=== PATIENT | male | born 1990 | race Caucasian/White ===

== ENCOUNTER → 2023-08-08 13:49 | Outpatient (REF) | payer BC, SELFPAY | LOC: HWRAD 13:49 | PROVIDERS: ATTENDING PHYSICIAN Urology; FAMILY PHYSICIAN Family Medicine | DX: N50.89 Other specified disorders of the male genital organs (principal) | CPT/HCPCS: 76870; 93976 ==

== ENCOUNTER → 2023-10-20 16:22 | Outpatient (REF) | payer BC, SELFPAY | LOC: CLAB 16:22 | PROVIDERS: ATTENDING PHYSICIAN Urology | DX: Z30.2 Encounter for sterilization (principal) | CPT/HCPCS: 88302 ==

== ENCOUNTER 2024-06-08 18:30 | Inpatient (IN) | payer BC, SELFPAY ==
[2024-06-08] VITALS (8 sets, daily range): BP systolic 107–122; BP diastolic 59–78; BMI 22.7
[2024-06-08 14:34] LABS: % Basophils 0.3 % (0-2); % Eosinophils 0.6 % (0-6); % Immature Granulocytes 0.3 % (0-0.5); % Lymphocytes 13.4 % (20.5-51.1); % Monocytes 6.1 % (1.7-9.3); % Neutrophils 79.3 % (42.2-75.2); Absolute Eosinophils 0.1 10^3/uL (0-0.7); Absolute Monocytes 0.5 10^3/uL (0.1-0.6); Absolute Neutrophils 6.1 10^3/uL (1.4-6.5); Hematocrit 42.3 % (39.0-52.0); Hemoglobin 15.1 g/dL (13.0-18.0); Mean Corp Hgb Conc. 35.7 g/dL (33.0-37.0); Mean Corpuscular Hgb 31.3 pg (27.0-31.0); Mean Corpuscular Volume 87.6 fL (80.0-94.0); Mean Platelet Volume 9.1 fL (7.4-10.4); Nucleated Red Blood Cells % 0 % (-); Platelet Count 223 10^3/uL (130-400); Red Blood Cell Count 4.83 10^6/uL (4.70-6.10); Red Cell Dist. Width 12.3 % (11.5-14.5); White Blood Cell Count 7.7 10^3/uL (4.8-10.8)
--- NOTE | 2024-06-08 14:52 | ED.GENMED ---
History of Present Illness
General
Chief Complaint: Abdominal Pain
Source: patient and spouse
Exam Limitations: none
Time Seen by Provider: 06/08/24 14:08
Nursing documentation reviewed up to this point in time: agreed with
History of Present Illness
History of Present Illness:
34-year-old male with past medical history of bowel obstruction requiring partial resection presents to the ER with his for evaluation of upper abdominal/chest discomfort rating to the back and severe hiccups. Patient says symptoms started
yesterday night and have been constant since then. He reports 'painful' repeated bouts of hiccups. He says he has burning chest/upper abdominal discomfort that radiates through to his mid back. He has had some nausea no vomiting. No diarrhea or
constipation. He denies fever or chills, shortness of breath or cough. He says he has had heartburn in the past but never anything this severe.
Past History
Past History
ED Past Medical History: Other (SBO)
ED Past Surgical History: Other (Laparotomy)
Social History
Personal:
Review of Systems
Review of Systems
All Other Systems: ROS reviewed and negative except as documented in HPI and ROS
Constitutional: Denies fever or chills
Respiratory: Denies cough or trouble breathing
Cardiac: Reports chest pain; Denies palpitations
ABD/GI: Reports abdominal pain and nausea; Denies vomiting, diarrhea or constipated
: Denies flank pain
Musculoskeletal: Denies neck pain or back pain
Neurological: Denies dizzy or headache
Phy Exam
Physical Exam
Physical Exam:
General: Awake, alert; appears uncomfortable frequent hiccups
Head: Normocephalic, atraumatic
Eyes: Conjunctiva normal, sclera anicteric
Throat: Airway intact, handling secretions
Neck: Trachea midline, supple without meningismus
Lungs: Clear to auscultation bilaterally, no wheezing, rales, rhonchi
Heart: Regular rate and rhythm, no murmurs, gallops, or rubs
Abd: Soft, non distended, mild tenderness in the epigastrium
Back: No CVA tenderness or reproducible tenderness in the back
Neuro: No gross deficits
Extremities: No edema in extremities, equal pulses in all extremities
Scores
Heart Failure Risk
Heart Failure Risk Score: Not Applicable
Heart Score for Chest Pain Patients
STEMI patient?: Not applicable
Withdrawal Assessment of Alcohol
Withdrawal Assessment Completed?: Not applicable
Course
Orders/Labs/Results
Orders:
Orders
06/08/24 13:47
Electrocardiogram (*1) Urgent
Reason for Study: Abdominal Pain
EKG- Treatment ONCE
06/08/24 14:13
Complete Blood Count/With Diff Urgent
Comprehensive Metabolic Panel Urgent
Lipase Urgent
Troponin I Urgent
06/08/24 14:44
US Abdomen Complete/Upper Urgent
Comment:
Reason For Exam: abd pain rad to back, nausea
06/08/24 14:45
Chlorpromazine [Thorazine] 25 mg PO NOW STA
Morphine Sulfate 4 mg IV NOW STA
06/08/24 14:46
CR Chest - 2 Views Urgent
Comment:
Reason For Exam: chest pain
06/08/24 14:54
Chlorpromazine [Thorazine] 25 mg PO NOW STA
06/08/24 16:16
CT Abd/pelvis W Iv Cont Urgent
Comment:
Reason For Exam: abd pain, nausea, back pain
06/08/24 17:48
Morphine Sulfate 4 mg IV NOW STA
Pantoprazole [Protonix IV] 40 mg IV NOW STA
Abnormal Lab Results
06/08/24
14:13
MCH 31.3 H pg
(27.0-31.0)
Absolute Lymphs (auto) 1.0 L 10^3/uL
(1.2-3.4)
Neutrophils % 79.3 H %
(42.2-75.2)
Lymphocytes % 13.4 L %
(20.5-51.1)
BUN 24 H mg/dl
(9-20)
06/08/24 14:13
06/08/24 14:13
Vital Signs
Initial and Last Documented VS:
Initial Vital Signs
Temp Pulse Resp Pulse Ox
36.8 C 71 20 100
06/08/24 13:51 06/08/24 13:51 06/08/24 13:51 06/08/24 13:51
Last Documented Vital Signs
Temp Pulse Resp BP Pulse Ox
36.8 C 73 19 112/71 98
06/08/24 13:51 06/08/24 16:00 06/08/24 16:00 06/08/24 16:00 06/08/24 16:00
MDM/Problems Addressed
Differential Diagnosis Includes:
Cholelithiasis/cholecystitis, pancreatitis, bowel obstruction, GERD/esophagitis
MDM/Problems Addressed:
34-year-old male presents with lower chest/epigastric pain rating to the back associated with severe hiccups and nausea. Constant since last night. Vitals and exam as above. Will plan to place an IV send labs including a CBC and a CMP, lipase.
Check EKG and troponin. Can check chest x-ray and upper abdominal ultrasound to start. Will treat symptomatically�with severe hiccups and nausea reasonable to trial Thorazine to help with both these issues. Will treat pain. Reassess after the
above.
Labs reviewed: CBC and CMP unremarkable. Troponin undetectable. Lipase normal. Chest x-ray shows no acute cardiopulmonary disease but does show distended stomach on my review. Abdominal ultrasound shows fatty infiltration of liver no other acute
pathology. Clinical reassessment patient is feeling a bit better after treatment hiccups have improved stopping some mild pain. Has long history of multiple small bowel obstructions will check CT given persistent pain with no other clear cause for
symptoms and distended stomach on chest x-ray.
CT shows fluid distention in the distal thoracic esophagus with wall thickening suggesting esophagitis. He also has moderate gastric distention but no clear evidence for bowel obstruction. Onset is likely inflammatory bronchiolitis in the left
lower lobe. Clinical reassessment he is still having significant back/epigastric pain. He is not vomiting. I long discussion with the patient�unclear etiology to gastric distention; he has no clear bowel obstruction but he does have history in
the past could be developing obstruction. I suggested that we perhaps place nasogastric tube to decompress his stomach which I suspect would provide significant symptomatic relief but patient wishes to hold off for now in favor of watchful waiting
and symptom control�I do not think this is unreasonable but I explained that we would proceed with nasogastric tube if he begins vomiting or feels like pain is not well-managed with medication. Will admit for serial exams and continued symptom
control. Case discussed with hospitalist.
*Radiology
Radiology exam reviewed: radiology read reviewed
*Pulse Oximetry
Patient hypoxic: no
*EKG
Interpreted by ED Provider?: Yes
Heart Rate: 70
Rate: normal
Rhythm: sinus
[place]: normal axis
Interval: normal interval
QRS Pattern: normal QRS
Ischemia: no ischemia
*Critical Care Note
Total Time (30-74mins, 75-104mins- exclusive of procedures): Not Applicable
Data Reviewed
Review of Other/Old Records Reveals: Labs and Records
Source: patient and spouse
Patient Management
Discussion with other providers: Hospitalist (Discussed with hospitalist)
Escalation/DeEscalation of care consider admission/obs:
Admission indicated
ED Attending Note
-
Portions of this chart may have been created with voice recognition software.� Occasional wrong word or��sound alike� substitutions may have occurred due to the inherent limitations of voice recognition software.
Discharge Plan
Departure
Patient Disposition: Admit
Date of Disposition: 06/08/24
Time of Disposition: 17:53
Admit to doctor: Karla
Presentation/result/management discussed w/ accepting MD/DO: Hospitalist
Discharge Problem:
Acute distention of stomach, Esophagitis, Singultus
Prescriptions:
No Action
levofloxacin 750 mg tablet
750 mg PO DAILY 4 Days Qty: 4 0RF
Referrals:
Mamadou Edmondson MD [Family Provider] -
Interventions
Interventions:
*Risk Screen - Suicide Last Done: 06/08/24 13:54
*General Assessment Last Done: 06/08/24 13:54
*Neglect/Abuse Screening Last Done: 06/08/24 14:30
*ED COVID-19 Vaccine History Last Done: 06/08/24 14:30
Discharge Date and Time
Print Language: QATARI
[2024-06-08 14:54] LABS: ALT (SGPT) 16 U/L (0-50); AST (SGOT) 19 U/L (17-59); Albumin 4.2 g/dl (3.5-5.0); Alkaline Phosphatase 57 U/L (38-126); Blood Urea Nitrogen 24 mg/dl (9-20); Calcium 9.7 mg/dl (8.4-10.2); Carbon Dioxide 27 mmol/L (22-30); Chloride 106 mmol/L (98-107); Glucose 99 mg/dl (70-99); Lipase 119 U/L (23-300); Potassium 4.3 mmol/L (3.5-5.1); Sodium 140 mmol/L (135-145); Total Bilirubin 0.5 mg/dl (0.2-1.3); Total Protein 6.3 g/dl (6.3-8.2); eGFR > 60.00
[2024-06-08] MEDS: MORPHINE SULFATE 4 MG IV ×3 (14:55→23:05)
[2024-06-08 15:00] LABS: Troponin I < 0.012 ng/ml
[2024-06-08] MEDS: THORAZINE 25 MG PO (15:45)
[2024-06-08] MEDS: PROTONIX IV 40 MG IV (17:57)
--- NOTE | 2024-06-08 18:06 | HPS.HSE ---
Family Physician
-
Family Physician: Mamadou Edmondson
Chief Complaint
-
Abdomen pain
History of Present Illness
34-year-old male with ADHD, heartburn, S/P vasectomy, H/O SBO s/p decompression (2022) who is presenting to the emergency department today with a complaint of abdomen pain. Was accompanied with his . Mentioned upper abdomen and chest
discomfort that radiated to his back and associated with severe hiccups. Started yesterday evening and has been constant since then. Mentions that hiccups have been painful and associated with a burning discomfort in his chest and up to her
abdomen with radiation to the mid back. Associated with nausea however no vomiting, diarrhea, constipation. Denies fevers or chills, dyspnea, chest tightness. Mentions previous episodes of heartburn but nothing this severe.
AFVSS upon arrival to the hospital. ED Labs unremarkable. ECG with normal sinus rhythm and no ischemic findings. Troponin negative. Abdomen ultrasound showed increased echogenicity of the liver compatible with underlying hepatocellular disease as
well as a tiny gallbladder polyp. Chest x-ray without any signs of acute processes. CT A/P with IV contrast showed signs of bronchiolitis in the left lower lobe, fluid distention of the distal thoracic esophagus with mild wall thickening, moderate
gastric distention, moderate diffuse colonic stool burden, however no evidence for mechanical obstruction. In the ED was given morphine sulfate and chlorpromazine.
When speaking with the patient in the room he states that symptoms started yesterday, however he did have a normal bowel movement this morning with regular caliber. He denies any recent NSAID usage. States that he did not have bowel resection
previously however had 'untwisting' of his bowel with previous episodes. Denies any melena, hematochezia.
Medical History
Past Medical History
Past Medical History: Reports GERD
Additional Past Medical History:
SBO x5
Past Surgical History: Reports Other
Additional Past Surgical History:
Exploratory laparotomy with decompression of small bowel ('untwisting')
Social History
Tobacco: Non-smoker
Alcohol: Occasional
Drug: None
Family History
Family History: Not pertinent
Allergies / Home Medications
Allergies reflects when Allergies were last updated in [employer].
Home Medications with original date entered in [employer]
Allergy/Medication List:
Allergies
Allergy/AdvReac Type Severity Reaction Status Date / Time
No Known Allergies Allergy Verified 06/08/24 13:51
Home Medications
levofloxacin 750 mg tablet 750 mg PO DAILY 4 days #4 tabs 12/23/22
Review of Systems
-
History Source: Patient
A 12 point ROS was completed and negative except as noted: Yes
Constitutional: Reports No Symptoms
EENT: Reports No Symptoms
Respiratory: Reports No Symptoms
Cardiac: Reports No Symptoms
Abdomen/GI: Reports See HPI
: Reports No Symptoms
Musculoskeletal: Reports No Symptoms
Skin: Reports No Symptoms
Neurological: Reports No Symptoms
Endocrine: Reports No Symptoms
Hematologic/Lymphatic: Reports No Symptoms
Psych: Reports No Symptoms
Physical Exam
Vital Signs
Vital Signs
Temp Pulse Resp BP Pulse Ox
98.2 F 73 19 112/71 98
06/08/24 13:51 06/08/24 16:00 06/08/24 16:00 06/08/24 16:00 06/08/24 16:00
Physical Exam
General: Well Developed, Well Nourished and No Apparent Distress
HEENT: NormoCephalic, Anicteric, Moist mucous membranes, Atraumatic and PERRLA
Respiratory: Clear and Non Labored Respirations; No Accessory Resp Muscle Use
Cardiac: S1/S2 and Regular Rhythm; No Murmur, Rub, Gallop or Peripheral Edema
GI: Soft, Non Tender, Normal Bowel Sounds, Distended (Mild distention) and No Hepatosplenomegaly
Musculoskeletal: No Clubbing, No Cyanosis and Other (No gross deformity)
Skin: Warm and Dry; No Rash or Jaundice
Neuro: AO x 3 and Nonfocal/grossly intact; No Tremors
Psych: Calm
Laboratory Results
-
06/08/24 14:13
06/08/24 14:13
Laboratory Results
Total Bilirubin 0.5 mg/dl (0.2-1.3) 06/08/24 14:13
AST 19 U/L (17-59) 06/08/24 14:13
ALT 16 U/L (0-50) 06/08/24 14:13
Alkaline Phosphatase 57 U/L (38-126) 06/08/24 14:13
Troponin I < 0.012 ng/ml 06/08/24 14:13
Lipase 119 U/L (23-300) 06/08/24 14:13
Data Reviewed
-
CT Scan: Report Reviewed by me, Discussed with Physician (General surgery) and Discussed with Patient
Lab Data: Labs Reviewed by me and Discussed with Patient
Impression/Plan
-
#Suspected early SBO
#Abdomen pain/distention
-Concern for early SBO or other intestinal obstruction, possibly secondary to adhesions (previous ex lap)
-Presented with abdominal distention/pain and nausea, has not had any vomiting episodes
-CT A/P with IV contrast did not show any transition points or signs of high-grade mechanical obstruction
-Radiographic pattern not consistent with ileus; deferred against NGT in the ED at patient's preference
-Hemodynamically stable, currently afebrile without infectious signs
Plan
-NPO for now with serial abdomen exams
-Start light maintenance IVF with D5
-NGT if patient develops vomiting
-PRN antiemtic and morphine
-Try to limit anticholinergics and opiates otherwise
-Surgical consult
#GERD with esophagitis
#Gastritis
-Question if this is related to obstruction with acute on chronic reflux
-Patient has chronic heartburn symptoms, not as severe as symptoms today
-ECG was normal and troponin negative, pain unlikely to be cardiovascular in nature
-CT A/P with IV contrast showed evidence of gastritis and esophagitis
-Home regimen does not include any antacid therapy per OP record
-Denies any symptoms of dysphagia though does have reflux
Plan
-Start IV PPI empirically
-Avoid NSAIDs
-Monitor for improvement with lutheran of bowel status
-Consider GI consult v. OP referral
#Liver echogenicity on US
-Finding concerning for active hepatocellular disease such as NAFLD versus other etiology
-No known history of underlying hepatic disease; only occasional alcohol use, low suspicion for JULIA
-Will order LFTs for now to assess further; also check A1c and FLP to assess for metabolic disease
-Consider further workup with hepatitis panel
#Singultus
-Had hiccups since beginning of his abdominal symptoms/early SBO symptoms
-Suspect degree of mass effect on phrenic nerve/diaphragm triggering
#Gallbladder polyp
-Noted on abdomen ultrasound, small
-Recommend outpatient ultrasound in 12 months to reassess
DVT prophylaxis: SCDs
Diet: NPO with small sips and ice chips
CODE STATUS: Full code
Disposition: Admit to [facility]
[2024-06-08] MEDS: D5/0.45%NACL 1000 IV (20:22)
[2024-06-08] MEDS: MORPHINE SULFATE 2 MG IV (20:22)
[2024-06-08] MEDS: PEPCID 20 MG IV (20:50)
[2024-06-09 06:59] LABS: % Basophils 0.3 % (0-2); % Eosinophils 0.8 % (0-6); % Immature Granulocytes 0.2 % (0-0.5); % Lymphocytes 15.1 % (20.5-51.1); % Neutrophils 76.6 % (42.2-75.2); Absolute Eosinophils 0.1 10^3/uL (0-0.7); Absolute Lymphocytes 0.9 10^3/uL (1.2-3.4); Absolute Monocytes 0.4 10^3/uL (0.1-0.6); Absolute Neutrophils 4.6 10^3/uL (1.4-6.5); Hematocrit 38.7 % (39.0-52.0); Hemoglobin 13.5 g/dL (13.0-18.0); Mean Corp Hgb Conc. 34.9 g/dL (33.0-37.0); Mean Platelet Volume 9.4 fL (7.4-10.4); Nucleated Red Blood Cells % 0 % (-); Platelet Count 181 10^3/uL (130-400); Red Blood Cell Count 4.35 10^6/uL (4.70-6.10); Red Cell Dist. Width 12.3 % (11.5-14.5)
[2024-06-09 07:00] VITALS: BP 113/58
[2024-06-09 07:24] LABS: ALT (SGPT) 13 U/L (0-50); AST (SGOT) 18 U/L (17-59); Albumin 3.6 g/dl (3.5-5.0); Alkaline Phosphatase 44 U/L (38-126); Blood Urea Nitrogen 18 mg/dl (9-20); Calcium 8.7 mg/dl (8.4-10.2); Carbon Dioxide 26 mmol/L (22-30); Chloride 107 mmol/L (98-107); Estimated Creatinine Clearance 119 ml/min; Glucose 113 mg/dl (70-99); HDL Cholesterol 37 mg/dl; LDL Cholesterol, Calculated 57 mg/dl; Magnesium 2.2 mg/dl (1.6-2.3); Potassium 4.3 mmol/L (3.5-5.1); Sodium 139 mmol/L (135-145); Total Bilirubin 0.6 mg/dl (0.2-1.3); Total Cholesterol 107 mg/dl (50-199); Total Protein 5.5 g/dl (6.3-8.2); Triglyceride 67 mg/dl (10-149); Very Low Density Lipoprotein 13 mg/dl (0-30); eGFR > 60.00
[2024-06-09] MEDS: NSS (PRESERVATIVE FREE) 10 ML IV (07:42)
[2024-06-09] MEDS: PROTONIX IV 40 MG IV (07:43)
[2024-06-09 07:53] LABS: TSH 1.72 uIU/ml (0.47-4.68)
[2024-06-09] MEDS: MORPHINE SULFATE 4 MG IV ×2 (09:36→16:07)
--- NOTE | 2024-06-09 10:40 | CON.GS ---
Medical History
-
Chief Complaint: Abd pain/nausea
History of Present Illness:
Patient is a 34-year-old male previously known to our surgical service with prior hospitalization for small bowel obstruction which promptly resolved with conservative management. He has had numerous previous episodes of small bowel obstructions
dating back to 2012 with having undergone 1 exploratory laparotomy for internal hernia but without bowel resection.
Patient states that he has been feeling well since his last hospitalization in 2022. He was in his usual baseline state of health until Monday when he began to take note of heartburn, indigestion and nausea/anorexia. He had upper abdominal
discomfort radiating into the back more so in the central and left side than anywhere else. Symptoms different than his typical small bowel obstructive events. He is continue to pass flatus and had bowel movements which were relatively normal over
the weekend. States that his stools have been somewhat darker in color. But he is not aware of melena or hematochezia. No previous history of significant GERD or ulcer disease.
Feeling better this a.m. Continues to pass flatus. No bowel movement overnight.
Still with some pain radiating to the back but nausea subsiding.
Past Medical History
Past Medical History: Other (As per HPI)
Past Surgical History: Other (as per HPI)
Social History
Tobacco: Non-Smoker
Alcohol: Occasional
Personal:
Living: With Family
Employment: Employed
Family History
Family History: Reviewed & Noncontributory
Allergies / Home Medications
Allergy/AdvReac Type Severity Reaction Status Date / Time
No Known Allergies Allergy Verified 06/08/24 13:51
�Medication �Instructions �Recorded �Confirmed �Type
calcium carbonate (Tums) 400 mg PO DAILYPRN PRN gerd 06/08/24 06/08/24 History
dextroamphetamine-amphetamine ER 15 mg PO DAILY 06/08/24 06/08/24 History
15 mg 24hr capsule,extend release
(Adderall XR)
Review of Systems
-
History Source: Patient
All other systems: Negative unless noted
A 10 point review of systems was completed, and was negative except as per HPI.
Physical Exam
Vital Signs
Temp Pulse Resp BP Pulse Ox
98.3 F 61 18 113/58 97
06/09/24 07:00 06/09/24 07:00 06/09/24 07:00 06/09/24 07:00 06/09/24 07:00
06/08/24 06/09/24 06/10/24
05:59 06:59 06:59
Actual Weight
Body Mass Index (BMI) 22.7
Lab Results
06/09/24 06:24
06/09/24 06:24
WBC 6.0 10^3/uL (4.8-10.8) 06/09/24 06:24
Hgb 13.5 g/dL (13.0-18.0) 06/09/24 06:24
Hct 38.7 % (39.0-52.0) L 06/09/24 06:24
Plt Count 181 10^3/uL (130-400) 06/09/24 06:24
Abs Immat Gran (auto) 0.0 10^3/uL (0-0.05) 06/09/24 06:24
Neutrophils % 76.6 % (42.2-75.2) H 06/09/24 06:24
Physical Exam
General: Well Developed, Well Nourished, No Apparent Distress and Comfortable
HEENT: Normocephalic, Anicteric and Moist Mucous Membranes
Respiratory: Non Labored Respirations
Cardiac: Regular Rhythm
GI: Soft, Non Tender (Essentially nontender, no rebound rigidity or guarding), Distended (Some tympany on percussion and mild distention in the left upper quadrant.) and Incisions (Well-healed laparotomy surgical scar.)
Skin: Warm
Neuro: AO x 3
Psych: Calm
Data Reviewed
-
CT Scan: Image Personally Visualized and interpreted, Report Reviewed by me and Discussed with Patient
Assessment / Plan
-
Assessment: 34-year-old male presenting with gastric outlet obstructive symptoms -nausea, heartburn, indigestion and anorexia.
CT imaging with large, fluid and gaseous filled stomach and thickening at the GE junction with reactive inflammatory changes of the distal esophagus.
No radiographic findings suggestive of small bowel obstruction and not typical pattern of symptoms for patient's previous episodes of small bowel obstruction either.
Plan: Check follow-up abdominal flatplate imaging to monitor for degree of gastric distention in comparison to CT imaging yesterday afternoon.
If improving then okay to start on clear liquid diet
If there is still persistent gastric distention then maintain n.p.o.
Agree with IV PPI therapy
Would recommend obtaining upper GI contrast imaging study tomorrow a.m. to evaluate for gastric emptying.
--- NOTE | 2024-06-09 11:11 | W.PN.HOSP.TC ---
Today's Communication/Plan
-
Follow-up abdomen x-ray and start CLD if distention is improved
Plan for upper GI series on 06/10
Continue with antiemetics and analgesics
Monitor bowel status/serial abdomen exam
Assessment / Plan
Assessment / Plan
#Suspected early SBO
#Abdomen pain/distention
-Concern for early SBO or other intestinal obstruction, possibly secondary to adhesions (previous ex lap)
-Presented with abdominal distention/pain and nausea, has not had any vomiting episodes
-CT A/P with IV contrast did not show any transition points or signs of high-grade mechanical obstruction
-Radiographic pattern not consistent with ileus; deferred against NGT in the ED at patient's preference
-Hemodynamically stable, currently afebrile without infectious signs
-Evaluated by surgery who recommended repeat imaging and UGIS tomorrow
Plan
-NPO for now with serial abdomen exams and maintenance IV
-Follow-up repeat imaging and start CLD if distention improved
-Upper GI series on 06/10/2024
-NGT if patient develops vomiting
-PRN antiemtic and morphine
#GERD with esophagitis
#Gastritis
-Question if this is related to obstruction with acute on chronic reflux
-Patient has chronic heartburn symptoms, not as severe as symptoms today
-ECG was normal and troponin negative, pain unlikely to be cardiovascular in nature
-CT A/P with IV contrast showed evidence of gastritis and esophagitis
-Home regimen does not include any antacid therapy per OP record
-Denies any symptoms of dysphagia though does have reflux
-Symptoms improved with bowel rest and IV PPI daily
-Plan to transition to oral PPI at [place], avoid NSAIDs
-Should have OP follow-up with gastroenterology
#Liver echogenicity on US
-Finding concerning for active hepatocellular disease such as NAFLD versus other etiology
-No known history of underlying hepatic disease; only occasional alcohol use, low suspicion for JULIA
-LFTs and fasting lipid panel were without significant abnormality
#Singultus
-Had hiccups since beginning of his abdominal symptoms/early SBO symptoms
-Suspect degree of mass effect on phrenic nerve/diaphragm triggering
-Improved as of 06/09
#Gallbladder polyp
-Noted on abdomen ultrasound, small
-Recommend outpatient ultrasound in 12 months to reassess
DVT prophylaxis: SCDs
Diet: NPO with small sips and ice chips
CODE STATUS: Full code
Anticipated Discharge: > 48 hours
Subjective/Interval History
-
Date of Service: June 09, 2024
Seen and examined at the bedside. No acute events reported overnight. AFVSS this morning
He states that he feels better, abdomen less distended. Otherwise denies any new complaints.
Surgery recommended repeat imaging today, transition to CLD if distention improved
Objective Data
-
Labs:
Laboratory Results
06/09/24
06:24
WBC 6.0
Hgb 13.5
Hct 38.7 L
Plt Count 181
Sodium 139
Potassium 4.3
Chloride 107
Carbon Dioxide 26
BUN 18
Creatinine 0.9
Glucose 113 H
Calcium 8.7
Total Bilirubin 0.6
AST 18
ALT 13
Alkaline Phosphatase 44
Vital Signs:
Vital Signs
Temp Pulse Resp BP Pulse Ox
98.3 F 61 18 113/58 97
06/09/24 07:00 06/09/24 07:00 06/09/24 07:00 06/09/24 07:00 06/09/24 07:00
I&O
06/08/24 06/09/24 06/10/24
05:59 06:59 06:59
Intake Total
Balance
Review of Systems
-
History Source: Patient
All other systems: Reviewed and negative
Physical Exam
-
General: Well Developed, Well Nourished and No Apparent Distress
HEENT: Normocephalic, Atraumatic and Moist Mucous Membranes
Respiratory: Clear to Auscultation and Non Labored Respirations
Cardiac: Regular Rhythm and S1/S2; Negative Murmur, Rub or Gallop
GI: Soft, Nontender, Normal Bowel Sounds and Distended (Minimally)
Musculoskeletal: No Clubbing, No Cyanosis and No Edema
Skin: Warm, Dry and Normal Turgor; Negative Rash
Neuro: AO x 3 and Nonfocal/Grossly Intact
Psych: Calm
Data Reviewed
-
Labs: Labs Reviewed by me, Discussed with Physician (Surgery) and Discussed with Patient
--- NOTE | 2024-06-09 14:34 | CM ---
CM reviewed chart, patient seen bedside with , initial assessment completed. Patient resides with in a multiple story home, patient is independent with ADLs/IADLs, denies VN/SNF, DME. Patient confirms PCP Mamadou Edmondson, pharmacy [facility]
[place]. CM will continue to follow for all discharge planning needs.
Plan; home no needs likely.
[2024-06-09 15:00] VITALS: BP 97/55
[2024-06-09] MEDS: D5/0.45%NACL 1000 IV (16:07)
[2024-06-09] MEDS: SENNA SYRUP 8.8 MG PO (17:10)
[2024-06-09] MEDS: MORPHINE SULFATE 2 MG IV (20:33)
[2024-06-09 23:18] VITALS: BP 108/63
[2024-06-10] MEDS: MORPHINE SULFATE 4 MG IV ×2 (02:33→09:00)
[2024-06-10] MEDS: D5/0.45%NACL 1000 IV ×2 (02:54→14:40)
[2024-06-10 07:00] VITALS: BP 109/60
[2024-06-10] MEDS: PROTONIX IV 40 MG IV (07:34)
[2024-06-10] MEDS: NSS (PRESERVATIVE FREE) 10 ML IV (07:34)
--- NOTE | 2024-06-10 08:03 | W.PN.GS2 ---
Addendum entered and electronically signed by Jluis Dick MD 06/10/24 10:20:
Patient seen and examined. Agree with assessment plan as documented below.
Reports some persistent back pain. Denies any chest or abdominal pain. No symptoms of dysphagia. No nausea or vomiting. No fevers. Patient
Gen: NAD
Abd: soft, NT/ND, non-peritoneal
Patient is a 34 yo M p/w nausea, heartburn, indigestion and anorexia
CT imaging with large, fluid and gaseous filled stomach and thickening at the GE junction with reactive inflammatory changes of the distal esophagus.
No radiographic findings suggestive of small bowel obstruction and not typical pattern of symptoms for patient's previous episodes of small bowel obstruction either.
AFVSS
Labs reviewed, mild leukopenia uncertain of clinical significance
Feeling a bit improved and previously tolerating clears (NPO for UGI). Plan for UGi today for further GI work-up
Plan:
-- UGI study today
-- Dietary changes and further recommendations pending study
-- PPI, would continue on DC
-- GI evaluation in patient versus outpatient pending the above study, no plans or indication for surgical intervention at this point in time
Original Note:
Today's Communication / Plan
-
UGI study
Assessment / Plan
-
Assessment: 34-year-old male presenting with gastric outlet obstructive symptoms -nausea, heartburn, indigestion and anorexia. CT imaging with large, fluid and gaseous filled stomach and thickening at the GE junction with reactive inflammatory
changes of the distal esophagus.
No radiographic findings suggestive of small bowel obstruction and not typical pattern of symptoms for patient's previous episodes of small bowel obstruction either.
AFVSS
Feeling a bit improved and tolerating clears
Plan:
UGI study today
Dietary changes and further recommendations pending study
Agree with IV PPI therapy
Subjective Data
-
Date of Service: June 10, 2024
Patient seen and examined at bedside with Dr. Dick. Denies nausea/vomiting. Some pain to the mid back but no abdominal pain.
Objective Data
-
Intake and Output
06/09/24 06/10/24 06/11/24
06:59 06:59 06:59
Intake Total 420 / 420
Balance 420 / 420
Intake:
Oral fluids 420 / 420
IV fluids (Total)
Other:
Number of approximated MODERATE 1
amounts of urine
Vital Signs
Temp Pulse Resp BP Pulse Ox
98.1 F 53 14 108/63 98
06/09/24 23:18 06/09/24 23:18 06/09/24 23:18 06/09/24 23:18 06/09/24 23:18
Calcium 8.7 mg/dl (8.4-10.2) 06/09/24 06:24
Magnesium 2.2 mg/dl (1.6-2.3) 06/09/24 06:24
Total Bilirubin 0.6 mg/dl (0.2-1.3) 06/09/24 06:24
AST 18 U/L (17-59) 06/09/24 06:24
ALT 13 U/L (0-50) 06/09/24 06:24
Alkaline Phosphatase 44 U/L (38-126) 06/09/24 06:24
Total Protein 5.5 g/dl (6.3-8.2) L 06/09/24 06:24
Albumin 3.6 g/dl (3.5-5.0) 06/09/24 06:24
Physical Exam
-
NAD AAOx3
ABD: soft, ND, NT, no R/R/G
[2024-06-10 08:18] LABS: % Basophils 0.5 % (0-2); % Eosinophils 1.1 % (0-6); % Immature Granulocytes 0.2 % (0-0.5); % Lymphocytes 20.5 % (20.5-51.1); % Monocytes 7.4 % (1.7-9.3); % Neutrophils 70.3 % (42.2-75.2); Absolute Eosinophils 0.1 10^3/uL (0-0.7); Absolute Lymphocytes 0.9 10^3/uL (1.2-3.4); Absolute Monocytes 0.3 10^3/uL (0.1-0.6); Absolute Neutrophils 3.1 10^3/uL (1.4-6.5); Hematocrit 37.3 % (39.0-52.0); Hemoglobin 12.7 g/dL (13.0-18.0); Mean Corpuscular Hgb 30.6 pg (27.0-31.0); Mean Corpuscular Volume 89.9 fL (80.0-94.0); Mean Platelet Volume 9.5 fL (7.4-10.4); Nucleated Red Blood Cells % 0 % (-); Platelet Count 161 10^3/uL (130-400); Red Blood Cell Count 4.15 10^6/uL (4.70-6.10); White Blood Cell Count 4.4 10^3/uL (4.8-10.8)
[2024-06-10 08:43] LABS: Blood Urea Nitrogen 12 mg/dl (9-20); Calcium 8.9 mg/dl (8.4-10.2); Carbon Dioxide 28 mmol/L (22-30); Chloride 104 mmol/L (98-107); Estimated Creatinine Clearance 119 ml/min; Glucose 95 mg/dl (70-99); Potassium 4.3 mmol/L (3.5-5.1); Sodium 137 mmol/L (135-145); eGFR > 60.00
[2024-06-10] MEDS: D5/0.45%NACL IV (09:32)
--- NOTE | 2024-06-10 09:55 | W.PN.HOSP.TC ---
Today's Communication/Plan
-
Follow-up upper GI results
Assessment / Plan
Assessment / Plan
#Abdomen pain/distention
-Concern for early SBO or other intestinal obstruction, possibly secondary to adhesions (previous ex lap)
-Presented with abdominal distention/pain and nausea, has not had any vomiting episodes
-CT A/P with IV contrast did not show any transition points or signs of high-grade mechanical obstruction
-Radiographic pattern not consistent with ileus; deferred against NGT in the ED at patient's preference
-Appreciate surgery input, follow-up upper GI today
#GERD with esophagitis
#Gastritis
-Question if this is related to obstruction with acute on chronic reflux
-CT A/P with IV contrast showed evidence of gastritis and esophagitis
-Home regimen does not include any antacid therapy per OP record
-Symptoms improved with bowel rest and IV PPI daily
-Plan to transition to oral PPI at [place], avoid NSAIDs
-Should have OP follow-up with gastroenterology
#Constipation
Start laxatives when able
#Liver echogenicity on US
-Finding concerning for active hepatocellular disease such as NAFLD versus other etiology
-No known history of underlying hepatic disease; only occasional alcohol use, low suspicion for JULIA
-LFTs and fasting lipid panel were without significant abnormality
#Singultus
-Had hiccups since beginning of his abdominal symptoms/early SBO symptoms
-Suspect degree of mass effect on phrenic nerve/diaphragm triggering
-Improved as of 06/09
#Gallbladder polyp
-Noted on abdomen ultrasound, small
-Recommend outpatient ultrasound in 12 months to reassess
DVT prophylaxis: SCDs
Diet: NPO with small sips and ice chips
CODE STATUS: Full code
Total time spent to see the patient on the floor, examine the patient, review data and lab results, discuss treatment plan with patient, nursing staff around 40 minutes.
Physical Exam
General: No acute distress
HEENT: Normocephalic, Atraumatic, EOMI, MMM
Respiratory: Clear to Auscultation bilaterally
Cardiac: Normal S1/S2, Regular Rate and Rhythm
GI: Soft, Nontender, Nondistended, Normal Bowel Sounds
Extremities: No Clubbing, Cyanosis, or Edema
Neuro: Nonfocal/Grossly Intact
Psych: Calm, Cooperative
Derm: No Visible lesions
Anticipated Discharge: Within 24 hours
Subjective/Interval History
-
Date of Service: June 10, 2024
Patient denies abdominal pain. No nausea, no vomiting. He is passing gas, no stool. No fever.
Objective Data
-
Labs:
Laboratory Results
06/10/24
07:56
WBC 4.4 L
Hgb 12.7 L
Hct 37.3 L
Plt Count 161
Sodium 137
Potassium 4.3
Chloride 104
Carbon Dioxide 28
BUN 12
Creatinine 0.9
Glucose 95
Calcium 8.9
Vital Signs:
Vital Signs
Temp Pulse Resp BP Pulse Ox
98.4 F 62 18 109/60 96
06/10/24 07:00 06/10/24 07:00 06/10/24 07:00 06/10/24 07:00 06/10/24 08:00
I&O
06/09/24 06/10/24 06/11/24
06:59 06:59 06:59
Intake Total 420 / 420
Balance 420 / 420
--- NOTE | 2024-06-10 13:02 | W.PN.UPDATE ---
Update Note
Progress Note Update
Patient with normal UGI study. Currently without pain/symptoms. Just passed BM.
Advanced to regular diet. Ok for discharge from surgical standpoint once tolerating diet.
Would recommend oral PPI on d/c with outpatient GI follow up for endoscopy. D/W hospitalist covering patient.
--- NOTE | 2024-06-10 13:21 | CM ---
Chart reviewed and plan is to home with spouse when stable.
Plan; Home with spouse when stable, no needs.
--- NOTE | 2024-06-10 14:50 | W.DCSUMMARY ---
Discharge Summary
Discharge Data
Date of Admission: 06/08/24
Date of Discharge: 06/10/24
-
Pending Results: No
Hospital Course
Discharge diagnosis:
Abdominal and esophageal distention
Gastroesophageal reflux with esophagitis and gastritis
Constipation
Gallbladder polyp
Consults: Surgery
UGI:
Water-soluble swallow was performed without difficulty. Esophageal peristalsis and motility were normal in both the upright and prone positions. No mucosal abnormalities. Stomach was within normal limits for size, shape, and position within the
abdominal cavity. No obvious mass or ulcer crater within the stomach, with normal gastric folds. No gastroesophageal reflux or hiatal hernia. Duodenal bulb and sweep were unremarkable.
CT abdomen and pelvis:
1. Left lower lobe infectious/inflammatory bronchiolitis.
2. Fluid distention of the distal thoracic esophagus with mild wall thickening likely reflecting reflux esophagitis change.
3. Moderate gastric distention. No evidence for bowel obstruction.
4. Moderate diffuse colonic stool burden may reflect constipation.
Hospital course:
34-year-old male with a past medical history of ADHD and GERD, who presented with abdominal pain, was found to have esophageal and gastric distention with esophagitis. Patient was seen in conjunction with general surgery for concerns of partial
gastric outlet obstruction. He was treated conservatively with bowel rest, and IV fluids. After several days, his abdominal pain resolved. He had an upper GI on 06/10/2024, that is normal. He tolerated a diet. He had a bowel movement. He is
medically stable and cleared by surgery for discharge. He will be discharged on pantoprazole 40 mg daily. He needs to follow-up with his primary care doctor in 1 week, as well as GI in the office in 2-4 weeks.
Disposition: Home self-care
Discharge planning: Required 41 minutes
Discharge Plan
-
Patient Disposition: Home (Routine Discharge)
Discharge Diagnosis/Procedures: Gastric distention, reflux esophagitis, constipation
Condition: Good
Diet: As tolerated and Regular
Activity: As tolerated
Driving Restrictions: As prior to admission
Referrals:
Kathryn Johnson MD [Active] - in two to four weeks
Mamadou Edmondson MD [Family Provider] - in one week
Prescriptions:
New
pantoprazole 40 mg tablet,delayed release (DR/EC)
40 mg PO DAILY Qty: 30 0RF
Continued
dextroamphetamine-amphetamine [Adderall XR] 15 mg Capsule,Extended Release 24hr
15 mg PO DAILY
calcium carbonate [Tums] 200 mg calcium (500 mg) Tablet,Chewable
400 mg PO DAILYPRN PRN (Reason: gerd)
Discharge Orders:
Discharge Patient (As Directed); Ordered 06/10/24
Ordered By: Patel Carreon
Discharge Date and Time
Print Language: TURKMEN
[2024-06-10 15:12] VITALS: BP 103/59
== END 2024-06-10 15:20 | disposition home or self-care (01) | DRG 390 ==
LOC: 4 WEST ACU 18:30
PROVIDERS: ADMITTING PHYSICIAN Internal Medicine; ATTENDING PHYSICIAN Family Medicine; CONSULT PHYSICIAN Surgery; EMERGENCY PHYSICIAN Emergency Medicine; FAMILY PHYSICIAN Family Medicine
DX: K56.50 Intestinal adhesions [bands], unspecified as to partial versus complete obstruction (principal); K21.00 Gastro-esophageal reflux disease with esophagitis, without bleeding; K29.70 Gastritis, unspecified, without bleeding; R06.6 Hiccough; K82.4 Cholesterolosis of gallbladder
CPT/HCPCS: 71046; 74018; 74177; 74240; 76700; 80048; 80053; 80061; 83690; 83735; 84443; 84484; 85025; 93005; 96374; 96375; 99285; Q9967

== ENCOUNTER 2024-08-29 06:22 | Day surgery (SDC) | payer BC, SELFPAY | END 2024-08-29 12:11 | disposition home or self-care (01) | LOC: GI 06:22 | PROVIDERS: ATTENDING PHYSICIAN Internal Medicine Gastroenterology | DX: R10.13 Epigastric pain (principal); R93.3 Abnormal findings on diagnostic imaging of other parts of digestive tract; K31.7 Polyp of stomach and duodenum; K22.89 Other specified disease of esophagus; K21.00 Gastro-esophageal reflux disease with esophagitis, without bleeding; K22.70 Barrett's esophagus without dysplasia | CPT/HCPCS: 43239; 88305 ==

== ENCOUNTER 2024-10-12 03:40 | Emergency (ER) | payer BC, SELFPAY ==
[2024-10-12 03:42] VITALS: BP 117/75
--- NOTE | 2024-10-12 03:51 | ED.GENMED ---
History of Present Illness
General
Chief Complaint: Abdominal Pain
Time Seen by Provider: 10/12/24 03:50
History of Present Illness
History of Present Illness:
TIME OF INITIAL EVALUATION
- 3:55 AM
REVIEW OF OLD RECORDS
- The patient has had bowel obstruction in the past and has history of Huston's esophagus. The patient was admitted with esophageal and gastric distention with esophagitis in June 2024 and there was some concern for a partial gastric outlet
obstruction. At that time he was treated with bowel rest and IV fluids. In December 2022 the patient had a distal small bowel obstruction. The patient had endoscopy with Dr. Bailey that showed esophagitis with no bleeding
CHIEF COMPLAINT(S)
Severe back pain with violent hiccups and acid reflux.
HISTORY OF PRESENT ILLNESS
The patient is a 34-year-old male with a history of bowel obstruction and gastrointestinal issues involving the stomach and esophagus area. He presents with symptoms similar to a previous episode in June. The patient reports experiencing severe
back pain accompanied by violent hiccups and significant acid reflux for a few days. He notes that he has not taken acid reflux medication, possibly omeprazole, for about a week. Prior to stopping the medication, he reports he was doing well without
significant symptoms. There is no vomiting, but he describes experiencing severe nausea. The patient denies any significant pain management with narcotics in the past.
EXTERNAL RECORDS REVIEWED
The patient�s previous visit records were reviewed, which indicated a history of bowel obstruction and gastrointestinal problems without a definitive bowel obstruction noted in June.
MEDICATIONS
The patient has been taking medication for acid reflux, possibly omeprazole, which he has not taken for approximately one week.
PHYSICAL EXAM
- Abdomen: Gentle palpation reveals no significant pain.
- Nursing notes reviewed and vital signs reviewed.
PLAN
1. Administer nausea medication and intravenous fluids.
2. Arrange for a computed tomography scan to assess for potential gastrointestinal issues.
3. Evaluate further records for past treatment methods and consider alternatives like Pepsid if narcotics are not required.
DIFFERENTIAL DIAGNOSIS
The Differential Diagnosis includes, in no particular order and is not limited to:
1. Gastroesophageal reflux disease (GERD)
2. Esophageal spasm
3. Gastritis
4. Hiatal hernia
5. Peptic ulcer disease
6. Gallbladder disease
7. Pancreatitis
8. Peptic ulcer perforation
9. Esophagitis
10. Functional dyspepsia
RADIOLOGY
- CT imaging obtained
EKG
- Not indicated
LABS
- White count and hemoglobin are normal, chemistries unremarkable including normal lipase and LFTs
UPDATE
- The patient was initially given Pepcid however pain persisted and he requested something stronger for pain�Dilaudid was given 1 mg IV x 2.
SUMMARY OF ENCOUNTER
The patient visited the emergency department with severe back pain, violent hiccups, and significant acid reflux. Initial management involved administration of narcotic pain medication for pain relief. Blood tests were conducted, which returned
normal results. A computed tomography (CT) scan revealed a larger than expected stomach but no true obstruction. Despite symptoms, the findings did not warrant hospital admission for further narcotic administration.
PLAN
Encourage the patient to continue monitoring symptoms at home and return if symptoms worsen or new symptoms develop.
PATIENT EDUCATION AND COUNSELING
Counseled the patient on the importance of refraining from driving after receiving intravenous narcotic medication and confirmed the patient had transportation arrangements to get home.
MEDICATION RECONCILIATION
Administered narcotic pain medication during the visit for symptomatic relief.
MEDICAL DECISION MAKING
- Number and Complexity of Problems Addressed: Chronic conditions affecting care include a history of bowel obstruction and gastrointestinal issues. Differential diagnosis includes gastroesophageal reflux disease (GERD), esophageal spasm, gastritis,
hiatal hernia, peptic ulcer disease, gallbladder disease, pancreatitis, peptic ulcer perforation, esophagitis, and functional dyspepsia.
- Data:
Category 1: CT scan reviewed, which showed no true obstruction; blood tests were normal.
Category 2: External records reviewed indicated prior gastrointestinal issues without definitive bowel obstruction; no independent historian was involved.
- Risk: Prescription medication was administered for symptomatic relief. Consideration of Admission/Observation: Escalation of care, including admission/observation, was considered but ultimately deemed unnecessary as the patients condition was
stable and did not show signs of an acute life-threatening process. The patients symptoms were controlled, and they were agreeable and reliable for discharge with follow-up.
DIAGNOSIS
Gastroesophageal reflux disease (GERD) (K21.9). History of nausea and severe back pain due to gastrointestinal issues.
Patient was instructed to not drive home and to obtain a ride which he said that he will do
Past History
Past History
ED Past Medical History: Other (SBO)
ED Past Surgical History: Other (Laparotomy)
Social History
Personal:
Phy Exam
Physical Exam
Physical Exam:
See HPI
Course
Orders/Labs/Results
Orders:
Orders
10/12/24 03:53
0.9% Sodium Chloride 1000 ml [Nss] 1,000 ml IV BOLUS
10/12/24 03:58
Ondansetron Injectable [Zofran] 4 mg IV NOW STA
10/12/24 04:17
Complete Blood Count/With Diff Urgent
Comprehensive Metabolic Panel Urgent
Lipase Urgent
10/12/24 04:27
HYDROmorphone [Dilaudid] 1 mg IV NOW STA
10/12/24 05:04
CT Abd/pelvis W Iv Cont Urgent
Comment:
Reason For Exam: upper pain; prior SBO and esophagitis
10/12/24 06:01
HYDROmorphone [Dilaudid] 1 mg IV NOW STA
Abnormal Lab Results
10/12/24
04:17
RBC 4.40 L 10^6/uL
(4.70-6.10)
Hct 38.2 L %
(39.0-52.0)
Absolute Lymphs (auto) 1.0 L 10^3/uL
(1.2-3.4)
Lymphocytes % 18.5 L %
(20.5-51.1)
Chloride 111 H mmol/L
(98-107)
10/12/24 04:17
10/12/24 04:17
Vital Signs
Initial and Last Documented VS:
Initial Vital Signs
Temp Pulse Resp BP Pulse Ox
36.6 C 81 16 117/75 97
10/12/24 03:42 10/12/24 03:42 10/12/24 03:42 10/12/24 03:42 10/12/24 03:42
Last Documented Vital Signs
Temp Pulse Resp BP Pulse Ox
36.6 C 63 16 105/63 96
10/12/24 03:42 10/12/24 06:54 10/12/24 03:42 10/12/24 07:00 10/12/24 07:00
*Pulse Oximetry
SaO2: 97
Oxygen Mode of Delivery: Room air
Patient hypoxic: no
*Critical Care Note
Total Time (30-74mins, 75-104mins- exclusive of procedures): Not Applicable
ED Attending Note
-
Portions of this chart may have been created with voice recognition software.� Occasional wrong word or��sound alike� substitutions may have occurred due to the inherent limitations of voice recognition software.
Discharge Plan
Departure
Patient Disposition: Home (Routine Discharge)
Date of Disposition: 10/12/24
Time of Disposition: 07:03
Patient with high blood pressure during this ER visit?: Yes
Discharge Problem:
Abdominal pain
Instructions: Abdominal Pain, BLOOD PRESSURE
Prescriptions:
No Action
dextroamphetamine-amphetamine [Adderall XR] 15 mg Capsule,Extended Release 24hr
15 mg PO DAILY
calcium carbonate [Tums] 200 mg calcium (500 mg) Tablet,Chewable
400 mg PO DAILYPRN PRN (Reason: gerd)
pantoprazole 40 mg tablet,delayed release (DR/EC)
40 mg PO DAILY Qty: 30 0RF
Referrals:
UNKNOWN - PT DOES,NOT KNOW [Family Provider]
Activity Restrictions/Additional Instructions:
CAT scan shows no sign of obstruction or any other concerning abnormality. Basic blood work is normal. Return here if worse or other concerns. I strongly recommend resuming PPI such as omeprazole/pantoprazole.
Interventions
Interventions:
*Risk Screen - Suicide Last Done: 10/12/24 03:47
*General Assessment Last Done: 10/12/24 03:42
*Neglect/Abuse Screening Last Done: 10/12/24 04:01
*ED- Fall Risk Assessment Last Done: 10/12/24 04:01
*ED COVID-19 Vaccine History Last Done: 10/12/24 04:01
*Nursing Disposition Last Done: 10/12/24 07:16
YU-Rvhztx-Kjpppryypi Assessment Last Done: 10/12/24 04:01
Discharge Date and Time
Discharge Date/Time: 10/12/24 07:20
Print Language: SWEDISH
[2024-10-12 04:00] VITALS: BP 120/78
[2024-10-12 04:01] VITALS: BMI 25.3
[2024-10-12] MEDS: ZOFRAN 4 MG IV (04:20)
[2024-10-12] MEDS: NSS 1000 IV (04:22)
[2024-10-12 04:23] LABS: Hematocrit 38.2 % (39.0-52.0); Hemoglobin 13.6 g/dL (13.0-18.0); Mean Corp Hgb Conc. 35.6 g/dL (33.0-37.0); Mean Corpuscular Volume 86.8 fL (80.0-94.0); Nucleated Red Blood Cells % 0 % (-); Platelet Count 215 10^3/uL (130-400); Red Cell Dist. Width 13.0 % (11.5-14.5)
[2024-10-12] MEDS: DILAUDID 1 MG IV ×2 (04:30→06:08)
[2024-10-12 04:50] LABS: ALT (SGPT) 25 U/L (0-50); AST (SGOT) 25 U/L (17-59); Albumin 4.3 g/dl (3.5-5.0); Alkaline Phosphatase 38 U/L (38-126); Blood Urea Nitrogen 18 mg/dl (9-20); Calcium 8.6 mg/dl (8.4-10.2); Carbon Dioxide 23 mmol/L (22-30); Chloride 111 mmol/L (98-107); Estimated Creatinine Clearance > 125 ml/min; Glucose 97 mg/dl (70-99); Lipase 103 U/L (23-300); Potassium 3.9 mmol/L (3.5-5.1); Sodium 140 mmol/L (135-145); Total Protein 6.3 g/dl (6.3-8.2); eGFR > 60.00
[2024-10-12 05:00] VITALS: BP 108/62
[2024-10-12 06:00] VITALS: BP 105/64
[2024-10-12 07:00] VITALS: BP 105/63
== END 2024-10-12 07:20 | disposition home or self-care (01) ==
LOC: EMR 03:40
PROVIDERS: EMERGENCY PHYSICIAN Emergency Medicine
DX: R10.9 Unspecified abdominal pain (principal); R06.6 Hiccough; K21.9 Gastro-esophageal reflux disease without esophagitis; Z87.19 Personal history of other diseases of the digestive system
CPT/HCPCS: 96374; 96375; 96376; 96361; 99284; 74177; 80053; 83690; 85025; Q9967

== ENCOUNTER 2024-12-29 19:10 | Inpatient (IN) | payer BC, SELFPAY ==
[2024-12-29] VITALS (11 sets, daily range): BP systolic 109–129; BP diastolic 69–79; BMI 23.9; BMI 28.4
--- NOTE | 2024-12-29 12:14 | ED.GENMED ---
History of Present Illness
General
Chief Complaint: Abdominal Pain
Source: patient
Time Seen by Provider: 12/29/24 12:00
History of Present Illness
History of Present Illness:
34-year-old male presents emergent complaint abdominal pain, nausea. Pain began this morning. He did not wake up with the pain but rather started sometime after he woke up. He denies any vomiting. He denies diarrhea or constipation. He had a
normal bowel movement this morning. Patient has a history of small bowel obstructions. He had an operation at [facility] few years ago and has had several episodes since then. Patient was recently hospitalized with what appeared to be a
gastric outlet obstruction. He was prescribed pantoprazole and continues to take it. He had a EGD performed by our gastroenterology department here at [facility] and it was reportedly unremarkable.
Past History
Past History
ED Past Medical History: Other (SBO)
ED Past Surgical History: Other (Laparotomy)
Social History
Personal:
Phy Exam
Physical Exam
Physical Exam:
General: Awake, Alert, Oriented X3. Patient appears very uncomfortable due to abdominal pain
Vitals: unremarkable
Head: Atraumatic
Eyes: Pupils equal, EOMI
Throat: Airway intact, no exudates
Neck: Trachea midline
Lungs: Clear and equal b/l
Heart: Regular rate, no murmurs
Abd: Soft, patient indicates his most significant discomfort is in the central and right upper abdomen, palpation of this area mildly worsens the pain but not significantly. He does not have a surgical abdomen at this time., No pulsatile mass
Neuro: Nonfocal
Skin: Warm, dry, no rash
Extremities: pulses equal b/l, no edema
Course
Orders/Labs/Results
Orders:
Orders
12/29/24 12:13
CT Abd/pel W Iv And Oral Contr Urgent
Comment:
Reason For Exam: Abdominal pain, nausea, history of SBO
HYDROmorphone [Dilaudid] 0.5 mg IV NOW STA
Iohexol [Omnipaque] See Protocol PO NOW STA
Ondansetron Injectable [Zofran] 4 mg IV NOW STA
12/29/24 12:14
Lactated Ringers [Lr] 1,000 ml IV BOLUS
12/29/24 13:01
Complete Blood Count/With Diff Urgent
Comprehensive Metabolic Panel Urgent
Lactic Acid Urgent
Lipase Urgent
12/29/24 14:07
HYDROmorphone [Dilaudid] 0.5 mg .ROUTE .STK-MED ONE
HYDROmorphone [Dilaudid] 0.5 mg IV NOW STA
12/29/24 15:44
Ketorolac [Toradol] 15 mg IV NOW STA
Ondansetron Injectable [Zofran] 4 mg IV NOW STA
12/29/24 16:10
0.9% Sodium Chloride 1000 ml [Nss] 1,000 ml IV BOLUS
Abnormal Lab Results
12/29/24
13:01
Absolute Neuts (auto) 8.4 H 10^3/uL
(1.4-6.5)
Neutrophils % 81.4 H %
(42.2-75.2)
Lymphocytes % 12.0 L %
(20.5-51.1)
Carbon Dioxide 19 L mmol/L
(22-30)
BUN 23 H mg/dl
(9-20)
Calcium 10.9 H mg/dl
(8.4-10.2)
Total Bilirubin 2.1 H mg/dl
(0.2-1.3)
Total Protein 8.4 H g/dl
(6.3-8.2)
Albumin 5.6 H g/dl
(3.5-5.0)
12/29/24 13:01
12/29/24 13:01
Vital Signs
Initial and Last Documented VS:
Initial Vital Signs
Temp Pulse Resp BP Pulse Ox
99.0 F 66 17 109/70 99
12/29/24 11:32 12/29/24 11:32 12/29/24 11:32 12/29/24 11:32 12/29/24 11:32
Last Documented Vital Signs
Temp Pulse Resp BP Pulse Ox
99.0 F 67 18 125/79 96
12/29/24 11:32 12/29/24 14:00 12/29/24 14:00 12/29/24 17:07 12/29/24 17:07
MDM/Problems Addressed
Differential Diagnosis Includes:
Small bowel obstruction, gastric outlet obstruction, perforated viscus
MDM/Problems Addressed:
Patient presents with abdominal pain. Labs are relatively unremarkable. CT however shows the presence of a small bowel obstruction with a transition point in the central abdomen. Patient will be admitted to the hospitalist service. Notify
Eric who is on for general surgery. Discussed an NG tube with the patient who declines at this time. He has had several small bowel obstructions that have been successfully treated with out an NG tube and would prefer to not have 1 unless he
starts to vomit.
*Radiology
Radiology exam reviewed: radiology read reviewed
*Pulse Oximetry
SaO2: 99
Oxygen Mode of Delivery: Room air
Patient hypoxic: no
*Critical Care Note
Total Time (30-74mins, 75-104mins- exclusive of procedures): Not Applicable
ED Attending Note
-
Portions of this chart may have been created with voice recognition software.� Occasional wrong word or��sound alike� substitutions may have occurred due to the inherent limitations of voice recognition software.
Discharge Plan
Departure
Patient Disposition: Admit
Date of Disposition: 12/29/24
Time of Disposition: 17:31
Admit to: Med/Surg
Presentation/result/management discussed w/ accepting MD/DO: Hospitalist
Condition: Fair
Discharge Problem:
Small bowel obstruction
Prescriptions:
No Action
dextroamphetamine-amphetamine [Adderall XR] 15 mg Capsule,Extended Release 24hr
15 mg PO DAILY
calcium carbonate [Tums] 200 mg calcium (500 mg) Tablet,Chewable
400 mg PO DAILYPRN PRN (Reason: gerd)
pantoprazole 40 mg tablet,delayed release (DR/EC)
40 mg PO DAILY Qty: 30 0RF
Referrals:
Mamadou Edmodnson MD [Family Provider, Family Practice]
Interventions
Interventions:
*Risk Screen - Suicide Last Done: 12/29/24 11:33
*General Assessment Last Done: 12/29/24 11:33
*Neglect/Abuse Screening Last Done: 12/29/24 11:33
*ED COVID-19 Vaccine History Last Done: 12/29/24 11:33
IM-Eswrht-Tfxfygmcnz Assessment Last Done: 12/29/24 13:13
Discharge Date and Time
Print Language: ESTONIAN
[2024-12-29] MEDS: ZOFRAN 4 MG IV ×3 (13:05→22:48)
[2024-12-29] MEDS: OMNIPAQUE 50 ML PO (13:05)
[2024-12-29] MEDS: DILAUDID 0.5 MG IV ×4 (13:07→23:27)
[2024-12-29] MEDS: LR 1000 IV (13:08)
[2024-12-29 13:13] LABS: Hematocrit 46.9 % (39.0-52.0); Hemoglobin 17.0 g/dL (13.0-18.0); Mean Corp Hgb Conc. 36.2 g/dL (33.0-37.0); Mean Corpuscular Volume 83.8 fL (80.0-94.0); Nucleated Red Blood Cells % 0 % (-); Platelet Count 289 10^3/uL (130-400); Red Cell Dist. Width 13.0 % (11.5-14.5)
[2024-12-29 13:29] LABS: ALT (SGPT) 24 U/L (0-50); AST (SGOT) 28 U/L (17-59); Albumin 5.6 g/dl (3.5-5.0); Alkaline Phosphatase 70 U/L (38-126); Calcium 10.9 mg/dl (8.4-10.2); Carbon Dioxide 19 mmol/L (22-30); Chloride 106 mmol/L (98-107); Estimated Creatinine Clearance 122 ml/min; Glucose 92 mg/dl (70-99); Lipase 91 U/L (23-300); Potassium 4.4 mmol/L (3.5-5.1); Sodium 139 mmol/L (135-145); Total Protein 8.4 g/dl (6.3-8.2); eGFR > 60.00
[2024-12-29 13:39] LABS: Blood Urea Nitrogen 23 mg/dl (9-20)
[2024-12-29] MEDS: TORADOL 15 MG IV (16:04)
[2024-12-29] MEDS: NSS 1000 IV (16:11)
--- NOTE | 2024-12-29 18:36 | HPS.HSE ---
Family Physician
-
Family Physician: Mamadou Edmondson
Chief Complaint
-
abdominal pain + nausea
History of Present Illness
HPI
34M HX SBO s/p decompression (2022) SBO, ADHD, Dyspesia, S/P vasectomy seen at ER:
- pw abdominal pain, nausea began this morning.
- had a normal bowel movement this morning.
- denies any vomiting
- denies diarrhea or constipation
HX SBO s/p decompression @ [facility] few years ago and has had several episodes since then.
HX gastric outlet obstruction.
He was prescribed pantoprazole and continues to take it.
He had a EGD performed by our gastroenterology department here at [place] and it was reportedly unremarkable.
Medical History
Past Medical History
Past Medical History: Reports GERD
Additional Past Medical History:
SBO x5
Past Surgical History: Reports Other (HX SBO s/p decompression (2022) )
Additional Past Surgical History:
Exploratory laparotomy with decompression of small bowel ('untwisting')
Social History
Tobacco: Non-smoker
Alcohol: Occasional
Drug: None
Family History
Family History: Not pertinent
Allergies / Home Medications
Allergies reflects when Allergies were last updated in [facility].
Home Medications with original date entered in [facility]
Allergy/Medication List:
Allergies
Allergy/AdvReac Type Severity Reaction Status Date / Time
No Known Allergies Allergy Verified 06/08/24 13:51
Home Medications
levofloxacin 750 mg tablet 750 mg PO DAILY 4 days #4 tabs 12/23/22
Review of Systems
-
Constitutional: Reports No Symptoms
EENT: Reports No Symptoms
Respiratory: Reports No Symptoms
Cardiac: Reports No Symptoms
Abdomen/GI: Reports Abdominal Pain and Nausea; Denies Vomiting or Diarrhea
: Reports No Symptoms
Musculoskeletal: Reports No Symptoms
Skin: Reports No Symptoms
Neurological: Reports No Symptoms
Endocrine: Reports No Symptoms
Hematologic/Lymphatic: Reports No Symptoms
Psych: Reports No Symptoms
Physical Exam
Vital Signs
Vital Signs
Temp Pulse Resp BP Pulse Ox
99.0 F 67 18 125/79 96
12/29/24 11:32 12/29/24 14:00 12/29/24 14:00 12/29/24 17:07 12/29/24 17:07
Physical Exam
General: Well Developed, Well Nourished and No Apparent Distress
HEENT: NormoCephalic, Anicteric, Moist mucous membranes, Atraumatic and PERRLA
Respiratory: Clear and Non Labored Respirations; No Accessory Resp Muscle Use
Cardiac: S1/S2 and Regular Rhythm; No Murmur, Rub, Gallop or Peripheral Edema
GI: Soft, Non Tender, Normal Bowel Sounds, Distended (Mild distention) and No Hepatosplenomegaly
Musculoskeletal: No Clubbing, No Cyanosis and Other (No gross deformity)
Skin: Warm and Dry; No Rash or Jaundice
Neuro: AO x 3 and Nonfocal/grossly intact; No Tremors
Psych: Calm
Laboratory Results
-
12/29/24 13:01
12/29/24 13:01
Laboratory Results
Lactic Acid 1.5 mmol/L (0.7-2.0) 12/29/24 13:01
Total Bilirubin 2.1 mg/dl (0.2-1.3) H 12/29/24 13:01
AST 28 U/L (17-59) 12/29/24 13:01
ALT 24 U/L (0-50) 12/29/24 13:01
Alkaline Phosphatase 70 U/L (38-126) 12/29/24 13:01
Lipase 91 U/L (23-300) 12/29/24 13:01
Data Reviewed
-
CT Scan: Report Reviewed by me
Lab Data: Labs Reviewed by me
Old Records: Reviewed
Impression/Plan
-
Relevant Data
12/23/22 12/29/24
17:04 13:01
WBC 10.3
Hgb 17.0
Plt Count 289
INR 1.07
Potassium 4.4
Carbon Dioxide 19 L
BUN 23 H
Creatinine 0.9
eGFR > 60.00
Calcium 10.9 H
Total Bilirubin 2.1 H
Albumin 5.[address]/pel W Iv And Oral Contr
Small bowel obstruction, which appears to be fairly high grade with a transition point in the central abdomen, where there is twisting of the central mesentery and small bowel loops at this level.
Last hospitalist admission: Date of Admission: 06/08/24 -Date of Discharge: 06/10/24
DC DX; Abdominal and esophageal distention, Gastroesophageal reflux with esophagitis and gastritis, Constipation, Gallbladder polyp
ASSESSMENT & PLAN
Pending Rx reconciliation
Recurrent early SBO with fairly high grade with a transition point in the central abdomen, where there is twisting of the central mesentery and small bowel loops at this level.
- abdomen pain/distention
- possibly adhesions (previous ex lap)
- not had any vomiting episodes
- hemodynamically stable - afebrile
- NPO and IVF
- PRN antiemetic and IV Dilaudid PRN
- NGT if patient develops vomiting
- GS / Dr Nixon aware per ER attd
HX GERD with esophagitis
- IV PPI empirically
- Avoid NSAIDs
HX Liver echogenicity on US on last admission DDX: NAFLD versus other etiology
- No known history of underlying hepatic disease; only occasional alcohol use, low suspicion for JULIA
HX Gallbladder polyp per prior US
DVT Px:SCD
Code: Full code
IP MS
[2024-12-29] MEDS: D5/0.9% SODIUM CHLORIDE 1000 IV (22:40)
--- NOTE | 2024-12-29 23:45 | PTCARENOTE ---
Receive pt from ER. Pt alert oriented X3, calm and cooperative, in no distress, but reports discomfort from RUQ pain. Pain is 7/10. Pt assist to bed, steady gait. Pt oriented to the room, call arenas within reach. VSS (T=98.3, HR=75, RR=16, VK=945/74,
SpO2=98% on RA). IVFs infusing as per order, Zofran for nausea and Dilaudid for pain. Will continue to monitor the pt.
[2024-12-30] MEDS: DILAUDID 0.5 MG IV ×6 (03:52→21:41)
[2024-12-30] MEDS: ZOFRAN 4 MG IV (05:26)
[2024-12-30 06:00] VITALS: BMI 28.1
[2024-12-30 07:00] VITALS: BP 123/67
[2024-12-30 08:33] LABS: Hematocrit 39.1 % (39.0-52.0); Hemoglobin 13.6 g/dL (13.0-18.0); Mean Corp Hgb Conc. 34.8 g/dL (33.0-37.0); Mean Corpuscular Volume 87.7 fL (80.0-94.0); Platelet Count 212 10^3/uL (130-400); Red Cell Dist. Width 13.2 % (11.5-14.5); Reticulocyte Count 1.1 % (0.4-2.8)
--- NOTE | 2024-12-30 08:47 | W.PN.HOSP.TC ---
Today's Communication/Plan
-
see PN
Assessment / Plan
Assessment / Plan
34yo M with PMHx of SBO s/p Sx in 2013 came with onset of abd pain with nausea, CT founf high grade SBO. Later patient had BM before coming to [facility]. Had flatus overnight
A/P:
#Recurrent SBO
DIet as per GenSx
IVF
pain mgmt
#Bilirubinemia
CT with unremarkable bile duct and gall bladder
check LDH, retics, direct bili
Follow LFT
Outpatient GI
#Small hepatic cysts
#1.2 cystic focus on spleen
No follow up advised
#Hypercalcemia
check PTH, vit D 0.25
suspect mild dehydration
outpatient follow up
#DJD with Osteoarthritis of hips
tylenol
PT/OT
DVT ppx SCDs
FUll code
I have spent at least 52min reviewign chart, test results, communication with consultants and providing direct patient care
Anticipated Discharge: 24 - 48 hours
Subjective/Interval History
-
Date of Service: December 30, 2024
Objective Data
-
Labs:
Laboratory Results
12/30/24
07:39
WBC 6.1
Hgb 13.6
Hct 39.1
Plt Count 212 D
Sodium Pending
Potassium Pending
Chloride Pending
Carbon Dioxide Pending
BUN Pending
Creatinine Pending
Glucose Pending
Calcium Pending
Total Bilirubin Pending
AST Pending
ALT Pending
Alkaline Phosphatase Pending
Vital Signs:
Vital Signs
Temp Pulse Resp BP Pulse Ox
98.2 F 61 16 123/67 97
12/30/24 07:00 12/30/24 07:00 12/30/24 07:00 12/30/24 07:00 12/30/24 07:00
I&O
12/29/24 12/30/24 12/31/24
06:59 06:59 06:59
Intake Total 500 / 500
Output Total 0 / 0
Balance 500 / 500
Review of Systems
-
History Source: Patient
All other systems: Reviewed and negative
Physical Exam
-
General: No Apparent Distress
HEENT: Normocephalic
Cardiac: Regular Rhythm
GI: Soft, Nontender, Nondistended and Normal Bowel Sounds
Neuro: Awake, Alert, Oriented and AO x 3
Psych: Calm
[2024-12-30 08:56] LABS: ALT (SGPT) 16 U/L (0-50); AST (SGOT) 21 U/L (17-59); Albumin 3.9 g/dl (3.5-5.0); Alkaline Phosphatase 41 U/L (38-126); Blood Urea Nitrogen 25 mg/dl (9-20); Calcium 9.0 mg/dl (8.4-10.2); Carbon Dioxide 25 mmol/L (22-30); Chloride 108 mmol/L (98-107); Estimated Creatinine Clearance 112 ml/min; Glucose 102 mg/dl (70-99); LDH 177 U/L (120-246); Potassium 4.4 mmol/L (3.5-5.1); Sodium 139 mmol/L (135-145); Total Protein 6.1 g/dl (6.3-8.2); eGFR > 60.00
--- NOTE | 2024-12-30 09:58 | CON.GS ---
Addendum entered and electronically signed by Sanya Duffy MD 12/30/24 18:34:
I saw and examined the patient independently.
The resident's documentation was reviewed and I agree with the note, assessment and plan except where noted below.
Comment: This is a 34-year-old male with a history of small bowel obstruction status post exploratory laparotomy and lysis of adhesions in 2013 who presented with 1 day history of abdominal pain, nausea found to have a small bowel obstruction with
a transition point. Today clinically he is improved passing flatus but still distended on exam.
Continue nonoperative management.
N.p.o., IV fluids.
If feeling improved, will p.o. challenge tomorrow
All questions answered, patient agreeable to plan of care above. I did discuss possible laparoscopic intervention as this is his second readmission this year for a small bowel obstruction. He will follow-up with me as an outpatient.
Original Note:
Consultation
-
Date/Time Consultation Performed: 12/30/2024 9:30am
Reason for Consultation: recurrent SBO
Medical History
-
Chief Complaint: Abdominal Pain, Nausea
History of Present Illness:
34-year-old male with history of small bowel obstruction s/p exploratory laparotomy (2013), ADHD, dyspepsia, incisional hernia, and gallbladder polyp, presents with right upper quadrant pain.
The pain began 1 day prior to admission, described as a dull, sharp, right upper quadrant pain that waxes and wanes, but never fully goes away with maximum intensity of 9/10. It is associated with nausea and chills, but no vomiting or fever. The
last bowel movement was the night before the presentation. He denies constipation or diarrhea. Persistence of symptoms prompted the patient to seek ER evaluation.�
Notably, the patient has had multiple prior hospitalizations for similar pain episodes. Since his 2013 exploratory laparotomy surgery where they �untwisted� his bowels, management has included nasogastric decompression and supportive therapy. His
most recent admission for the same problem was between 06/08/2024- 06/10/2024.
CT showed: Proximal small bowel loops are dilated and contain air-fluid levels measuring 4-5 cm in caliber. Transition point in the central abdomen, where there appears to be twisting of central mesentery and small bowel loops. Stomach distended. No
extraluminal free air or fluid collection. Few small hepatic cysts. Stable 1.2 cm cystic cyst focus at the posterior margin of the spleen.
Past Medical History
Past Medical History: Other (Recurrent Small Bowel Obstruction, ADHD, Dyspepsia, Incisional Hernia, Gallbladder polyp)
Past Surgical History: Other (Exploratory Laparotomy (2013) )
Social History
Tobacco: Non-Smoker
Alcohol: Occasional
Drug: None
Personal:
Living: With Family
Family History
Family History: Reviewed & Not Pertinent
Allergies / Home Medications
Allergy/AdvReac Type Severity Reaction Status Date / Time
No Known Allergies Allergy Verified 12/29/24 11:33
�Medication �Instructions �Recorded �Confirmed �Type
calcium carbonate (Tums) 400 mg PO DAILYPRN PRN gerd 06/08/24 06/08/24 History
dextroamphetamine-amphetamine ER 15 mg PO DAILY ADD 06/08/24 06/08/24 History
15 mg 24hr capsule,extend release
(Adderall XR)
pantoprazole 40 mg tablet,delayed 40 mg PO DAILY GERD 12/30/24 History
release
Review of Systems
-
History Source: Patient
A 10 point review of systems was completed, and was negative except as per HPI.
Physical Exam
Vital Signs
Temp Pulse Resp BP Pulse Ox
98.2 F 61 16 123/67 97
12/30/24 07:00 12/30/24 07:00 12/30/24 07:00 12/30/24 07:00 12/30/24 07:00
12/29/24 12/30/24 12/31/24
06:59 06:59 06:59
Actual Weight 76.612 kg
Body Mass Index (BMI) 28.1
Lab Results
12/30/24 07:39
12/30/24 07:39
WBC 6.1 10^3/uL (4.8-10.8) 12/30/24 07:39
Hgb 13.6 g/dL (13.0-18.0) 12/30/24 07:39
Hct 39.1 % (39.0-52.0) 12/30/24 07:39
Plt Count 212 10^3/uL (130-400) D 12/30/24 07:39
Abs Immat Gran (auto) 0.0 10^3/uL (0-0.05) 12/29/24 13:01
Neutrophils % 81.4 % (42.2-75.2) H 12/29/24 13:01
Physical Exam
General: Well Developed and Well Nourished
Respiratory: Non Labored Respirations
Cardiac: S1/S2 and Regular Rhythm
GI: Soft, Normal Bowel Sounds, Tender (RUQ) and Distended
Skin: Warm
Neuro: AO x 3
Psych: Calm
Data Reviewed
-
CT Scan: Image Personally Visualized and interpreted (by attending surgeon), Report Reviewed by me (and attending surgeon) and Discussed with Patient (by attending surgeon)
Assessment / Plan
-
34-year-old male with history of small bowel obstruction, ADHD, dyspepsia, incisional hernia, and gallbladder polyp, presents with right upper quadrant pain that began a day prior associated with nausea and chills; denies fever and vomiting. History
notable for recurrent SBO managed initially with exploratory laboratory in 2013, then decompression, and supportive therapy henceforth. His most recent admission for the same problem was between 06/08/2024- 06/10/2024.
CT showed: Proximal small bowel loops are dilated and contain air-fluid levels measuring 4-5 cm in caliber. Transition point in the central abdomen, where there appears to be twisting of central mesentery and small bowel loops. Stomach distended. No
extraluminal free air or fluid collection. few small hepatic cysts. Stable 1.2 cm cystic cyst focus at the posterior margin of the spleen.
#Recurrent Small bowel obstruction
s/p Exploratory Laparotomy (2013)
-Given that the recurrence of SBO has become more frequent, discussion about possibility of surgery in the future was discussed with the patient by . Risks and benefits discussed, questions answered.
-NPO; bowel rest
-Non-operative management for today. Advised about supportive techniques chewing gum, ambulation, positioning.
-Pain management and antiemetics PRN
-DVT prophylaxis
[2024-12-30 11:02] LABS: Vitamin D, 25-OH*** 33.7 ng/mL (30-80)
[2024-12-30] MEDS: D5/0.9% SODIUM CHLORIDE 1000 IV ×2 (11:27→23:33)
--- NOTE | 2024-12-30 14:05 | CM ---
Reviewed chart. Met with pt at bedside. Continues on IVF. IA completed. Lives in 2 story home with and 3 children with 5 steps into the home and 13 steps inside the home. Independent in ADLs and IADLs.No hx of home O2, DME, HH or SNF.Verified
PCP, Rx, insurance and drug coverage.
PCP:: Mamadou Edmondson
Rx: [facility]
Plan: Home with no needs
[2024-12-30 15:00] VITALS: BP 107/53
[2024-12-30 23:05] VITALS: BP 105/54
[2024-12-31 06:00] VITALS: BMI 28.5
[2024-12-31 07:00] VITALS: BP 107/61
--- NOTE | 2024-12-31 07:48 | W.PN.GS2 ---
Addendum entered and electronically signed by Jluis Dick MD 12/31/24 17:20:
Patient tolerated clears. Bowel movement during the day. Advance and tolerated low residue diet. Clinically feels well. Okay for discharge from surgical perspective. Outpatient follow-up offered.
Original Note:
Today's Communication / Plan
-
-- Clears
-- Pain control: Tylenol, Toradol, avoid narcotics if able
-- HLIV if tolerating clears by this afternoon
-- GI: home PPI ordered
Assessment / Plan
-
Patient is a 34 yo M p/w pSBO
AVSS
Repeat labs pending
Clinical improvement. Plan for dietary advancement. All questions answered.
-- Clears
-- Pain control: Tylenol, Toradol, avoid narcotics if able
-- HLIV if tolerating clears by this afternoon
-- OOB/ambulate
-- DVT: SCDs
-- GI: home PPI ordered
Subjective Data
-
Date of Service: December 31, 2024
Feels improved. Continues to pass flatus. Last BM was prior to admission. No nausea or vomiting.
Objective Data
-
Intake and Output
12/30/24 12/31/24 01/01/25
06:59 06:59 06:59
Intake Total 500 / 500 960 / 960
Output Total 0 / 0
Balance 500 / 500 960 / 960
Intake:
IV fluids (Total) 500 / 500 960 / 960
Output:
Urine, Voided 0 / 0
Other:
Number of approximated MODERATE 1
amounts of urine
Vital Signs
Temp Pulse Resp BP Pulse Ox
98.0 F 52 16 105/54 96
12/30/24 23:05 12/30/24 23:05 12/30/24 23:05 12/30/24 23:05 12/30/24 23:05
Calcium 9.0 mg/dl (8.4-10.2) D 12/30/24 07:39
Total Bilirubin 1.6 mg/dl (0.2-1.3) H 12/30/24 07:39
Direct Bilirubin 0.3 mg/dl (0.0-0.4) 12/30/24 07:39
AST 21 U/L (17-59) 12/30/24 07:39
ALT 16 U/L (0-50) 12/30/24 07:39
Alkaline Phosphatase 41 U/L (38-126) 12/30/24 07:39
Total Protein 6.1 g/dl (6.3-8.2) L D 12/30/24 07:39
Albumin 3.9 g/dl (3.5-5.0) D 12/30/24 07:39
Physical Exam
-
Gebn: NAD
Abd: soft, NT/ND, non-peritoneal
Patient has a claros catheter: No
Patient has a central line: No
[2024-12-31 07:52] LABS: Hematocrit 35.8 % (39.0-52.0); Hemoglobin 12.5 g/dL (13.0-18.0); Mean Corp Hgb Conc. 34.9 g/dL (33.0-37.0); Mean Corpuscular Volume 90.2 fL (80.0-94.0); Nucleated Red Blood Cells % 0 % (-); Platelet Count 190 10^3/uL (130-400); Red Cell Dist. Width 13.0 % (11.5-14.5)
[2024-12-31 08:17] LABS: ALT (SGPT) 14 U/L (0-50); AST (SGOT) 17 U/L (17-59); Albumin 3.5 g/dl (3.5-5.0); Alkaline Phosphatase 39 U/L (38-126); Blood Urea Nitrogen 16 mg/dl (9-20); Calcium 8.6 mg/dl (8.4-10.2); Carbon Dioxide 28 mmol/L (22-30); Chloride 108 mmol/L (98-107); Estimated Creatinine Clearance 112 ml/min; Glucose 99 mg/dl (70-99); Potassium 4.3 mmol/L (3.5-5.1); Sodium 139 mmol/L (135-145); Total Protein 5.4 g/dl (6.3-8.2); eGFR > 60.00
[2024-12-31] MEDS: PROTONIX IV 40 MG IV (09:02)
[2024-12-31] MEDS: NSS (PRESERVATIVE FREE) 10 ML IV (09:02)
--- NOTE | 2024-12-31 11:22 | W.PN.HOSP.TC ---
Today's Communication/Plan
-
advance diet as per GenSx
Assessment / Plan
Assessment / Plan
34yo M with PMHx of SBO s/p Sx in 2013 came with onset of abd pain with nausea, CT found high grade SBO. Later patient had BM before coming to [facility]. Had flatus overnight. With improvement - was started on advancement of the diet. GenSx planning
for outpatient f/u for possible elective Sx in view of 2nd SBO over past year
A/P:
#Recurrent SBO
DIet as per GenSx
IVF
pain mgmt
#Indirect Bilirubinemia
CT with unremarkable bile duct and gall bladder
most likely [place] as resolved and LDH with retics WNL
#Small hepatic cysts
#1.2 cystic focus on spleen
No follow up advised
#reactive leukopenia
CBC as outpatient in 1 week
#Hypercalcemia
resolved
check PTH
vit D 0.25 WNL
suspect mild dehydration
outpatient follow up
#DJD with Osteoarthritis of hips
tylenol
PT/OT
DVT ppx SCDs
FUll code
I have spent at least 38min reviewign chart, test results, communication with consultants and providing direct patient care
Anticipated Discharge: Within 24 hours
Subjective/Interval History
-
Date of Service: December 31, 2024
Objective Data
-
Labs:
Laboratory Results
12/31/24
06:51
WBC 3.5 L
Hgb 12.5 L
Hct 35.8 L
Plt Count 190
Sodium 139
Potassium 4.3
Chloride 108 H
Carbon Dioxide 28
BUN 16
Creatinine 0.8
Glucose 99
Calcium 8.6
Total Bilirubin 1.0
AST 17
ALT 14
Alkaline Phosphatase 39
Vital Signs:
Vital Signs
Temp Pulse Resp BP Pulse Ox
98.5 F 53 16 107/61 98
12/31/24 07:00 12/31/24 07:00 12/31/24 07:00 12/31/24 07:00 12/31/24 07:00
I&O
12/30/24 12/31/24 01/01/25
06:59 06:59 06:59
Intake Total 500 / 500 960 / 960
Output Total 0 / 0
Balance 500 / 500 960 / 960
--- NOTE | 2024-12-31 11:47 | CM ---
Reviewed chart. Met with pt at bedside. Advancing diet. Possible DC today.
Plan: Home no needs
[2024-12-31] MEDS: D5/0.9% SODIUM CHLORIDE IV (13:10)
[2024-12-31 15:00] VITALS: BP 105/66
--- NOTE | 2024-12-31 16:24 | W.DCSUMMARY ---
Discharge Summary
Discharge Data
Date of Admission: 12/29/24
Date of Discharge: 12/31/24
-
Pending Results: No
Hospital Course
34yo M with PMHx of SBO s/p Sx in 2013 came with onset of abd pain with nausea, CT found high grade SBO. Later patient had BM before coming to [facility]. Had flatus overnight. With improvement - was started on advancement of the diet. GenSx planning
for outpatient f/u for possible elective Sx in view of 2nd SBO over past year. Tolerated solids and did not use pain meds for >15h. As per communication with [facility] - medicallystable to be d/c home
Patient was managed for:
#Recurrent SBO
#Indirect Bilirubinemia
#Small hepatic cysts
#1.2 cystic focus on spleen
#reactive leukopenia
#Hypercalcemia
#DJD with Osteoarthritis of hips
Discharge Plan
-
Patient Disposition: Home (Routine Discharge)
Discharge Diagnosis/Procedures: SBO
Diet: Low Residue
Blood Work: CBC, BMP in 1 week with family doctor
Referrals:
Jluis Dick MD [Active, Surgical] - in two to three weeks
Mamadou Edmondson MD [Family Provider, Family Practice] - in one to two weeks
Referral Note: follow up for intermittent hypercalcemia
Prescriptions:
Continued
dextroamphetamine-amphetamine [Adderall XR] 15 mg Capsule,Extended Release 24hr
15 mg PO DAILY
calcium carbonate [Tums] 200 mg calcium (500 mg) Tablet,Chewable
400 mg PO DAILYPRN PRN (Reason: gerd)
pantoprazole 40 mg tablet,delayed release (DR/EC)
40 mg PO DAILY
Discharge Orders:
Discharge Patient (As Directed); Ordered 12/31/24
Ordered By: Gabe Gary
Discharge Date and Time
Print Language: STATELESS
== END 2024-12-31 17:48 | disposition home or self-care (01) | DRG 390 ==
LOC: 4 EAST ACU 19:10
PROVIDERS: ADMITTING PHYSICIAN Internal Medicine; ATTENDING PHYSICIAN Internal Medicine; EMERGENCY PHYSICIAN Emergency Medicine; FAMILY PHYSICIAN Family Medicine; OTHER PHYSICIAN Surgery
DX: K56.609 Unspecified intestinal obstruction, unspecified as to partial versus complete obstruction (principal); F90.9 Attention-deficit hyperactivity disorder, unspecified type; K21.00 Gastro-esophageal reflux disease with esophagitis, without bleeding; K76.89 Other specified diseases of liver; E80.4 Gilbert syndrome; D72.819 Decreased white blood cell count, unspecified; E83.52 Hypercalcemia; M16.0 Bilateral primary osteoarthritis of hip; E86.0 Dehydration; Z98.52 Vasectomy status
CPT/HCPCS: 74177; 80053; 82248; 82306; 83605; 83615; 83690; 83970; 85025; 85027; 85045; 96361; 96374; 96375; 96376; 99285; Q9967